=== PATIENT | female | born 1990 | race Caucasian/White ===

== ENCOUNTER 2018-01-14 14:23 | Emergency (ER) | payer SELFPAY ==
--- NOTE | 2018-01-14 16:53 | ER Document Report ---
ED Medical Screen (RME) - General Chief Complaint: Abdominal Pain Stated Complaint: ABDOMINAL PAIN Time Seen by Provider: 01/14/18 16:45 Notes: Patient presents with 4 days of constant sharp right lower quadrant pain that radiates to her back. She states she has been having more vaginal discharge she denies any fever nausea or vomiting. She states that the pain is sharp and continuous and has not gone away so she comes emergency department for evaluation. Her last menstrual period was approximately 3 weeks ago. I have greeted and performed a rapid initial assessment of this patient. A comprehensive ED assessment and evaluation of the patient, analysis of test results and completion of the medical decision making process will be conducted by additional ED providers. PHYSICAL EXAMINATION: GENERAL: Well-appearing, well-nourished and in no acute distress. HEAD: Atraumatic, normocephalic. EYES: Pupils equal round extraocular movements intact, conjunctiva are normal. ENT: Nares patent NECK: Normal range of motion LUNGS: No respiratory distress Musculoskeletal: Normal range of motion ABD: +BS, TTP RLQ BACK: No CVA TTP NEUROLOGICAL: Normal speech, normal gait. PSYCH: Normal mood, normal affect. SKIN: Warm, Dry, normal turgor, no rashes or lesions noted. TRAVEL OUTSIDE OF THE [place] IN LAST 30 DAYS: No - Related Data Allergies/Adverse Reactions: No Known Allergies Allergy (Verified 01/14/18 14:23) Past Medical History - Social History Chew tobacco use (# tins/day): No Frequency of alcohol use: Social Drug Abuse: None Renal/ Medical History: Denies: Hx Peritoneal Dialysis Past Surgical History: Reports: Hx Section, Hx Cholecystectomy, Hx Tubal Ligation Physical Exam - Vital signs Vitals: Temp Pulse Resp BP Pulse Ox 98.5 F 84 16 113/70 96 01/14/18 14:27 01/14/18 14:27 01/14/18 14:27 01/14/18 14:27 01/14/18 14:27 Course - Vital Signs Vital signs: Temp Pulse Resp BP Pulse Ox 98.5 F 84 16 113/70 96 01/14/18 14:27 01/14/18 14:27 01/14/18 14:27 01/14/18 14:27 01/14/18 14:27
[2018-01-14 17:27] LABS: ABSOLUTE EOSINOPHILS # (AUTO) 0.1 10^3/uL (0.0-0.6); ABSOLUTE LYMPHOCYTES (AUTO) 2.7 10^3/uL (0.5-4.7); ABSOLUTE MONOCYTES (AUTO) 0.5 10^3/uL (0.1-1.4); ABSOLUTE NEUT (AUTO) 5.6 10^3/uL (1.7-8.2); BASOPHILS % (AUTO) 0.5 % (0-2); EOSINOPHILS % (AUTO) 1.5 % (0-6); HEMATOCRIT 42.1 % (36.0-47.0); HEMOGLOBIN 14.2 g/dL (12.0-15.5); LYMPHOCYTES % (AUTO) 29.6 % (13-45); MEAN CORPUSCULAR HEMOGLOBIN 29.9 pg (27.0-33.4); MEAN CORPUSCULAR HGB CONC 33.7 g/dL (32.0-36.0); MEAN CORPUSCULAR VOLUME 89 fl (80-97); MONOCYTES % (AUTO) 5.8 % (3-13); PLATELET COUNT 334 10^3/uL (150-450); RED BLOOD COUNT 4.74 10^6/uL (3.72-5.28); RED CELL DISTRIBUTION WIDTH 13.2 % (11.5-14.0); SEGMENTED NEUTROPHILS % (AUTO) 62.6 % (42-78); TOTAL CELLS COUNTED % (AUTO) 100 %
[2018-01-14 17:42] LABS: ALANINE AMINOTRANSFERASE 25 U/L (9-52); ALBUMIN 4.2 g/dL (3.5-5.0); ALKALINE PHOSPHATASE 68 U/L (38-126); ANION GAP 9 (5-19); ASPARTATE AMINO TRANSFERASE 17 U/L (14-36); BILIRUBIN,DIRECT 0.2 mg/dL (0.0-0.4); BILIRUBIN,TOTAL 0.5 mg/dL (0.2-1.3); BLOOD UREA NITROGEN 5 mg/dL (7-20); CALCIUM 9.6 mg/dL (8.4-10.2); CARBON DIOXIDE 28 mmol/L (22-30); CHLORIDE 105 mmol/L (98-107); GLUCOSE 91 mg/dL (75-110); POTASSIUM 4.2 mmol/L (3.6-5.0); SODIUM 142.1 mmol/L (137-145)
[2018-01-14 17:56] LABS: APPEARANCE,URINE CLEAR; BILIRUBIN,URINE NEGATIVE (NEGATIVE); COLOR,URINE YELLOW; GLUCOSE, URINE NEGATIVE (NEGATIVE); KETONES,URINE NEGATIVE (NEGATIVE); LEUKOCYTE ESTERASE,URINE NEGATIVE (NEGATIVE); NITRITE,URINE NEGATIVE (NEGATIVE); PROTEIN,URINE NEGATIVE (NEGATIVE); URINE SPECIFIC GRAVITY 1.017; UROBILINOGEN,URINE NEGATIVE mg/dL (<2.0)
--- NOTE | 2018-01-14 19:33 | RADIOLOGY REPORT (SQ) ---
EXAM DESCRIPTION: U/S NON OB PEL TV W/DOPPLER COMPLETED DATE/TIME: 01/14/2018 7:24 pm REASON FOR STUDY: RLQ abd pain COMPARISON: None. TECHNIQUE: Dynamic and static grayscale images acquired of the pelvis via transvaginal approach and recorded on PACS. Additional selected color Doppler and spectral images recorded. LIMITATIONS: None. FINDINGS: UTERUS: Contour normal. No mass. ENDOMETRIAL STRIPE: No focal or generalized thickening. No masses. CERVIX: Small nabothian cysts. RIGHT OVARY AND DOPPLER: Normal size. No worrisome masses. Normal arterial vascular flow without evid ence for torsion. LEFT OVARY AND DOPPLER: Ovary not visualized. FREE FLUID: None noted. OTHER: No other significant finding. MEASUREMENTS: UTERUS: 5 x 10.1 cm. ENDOMETRIAL STRIPE: 6 mm. RIGHT OVARY: 3 x 3.1 x 4.1 cm. LEFT OVARY: Not visualized. IMPRESSION: LEFT OVARY NOT VISUALIZED. OTHERWISE UNREMARKABLE TRANSVAGINAL PELVIC ULTRASOUND. TECHNICAL DOCUMENTATION: JOB ID: [id number] [employer]- All Rights Reserved Rev Reading location - IP/workstation name: [email or web address]
[2018-01-14] MEDS ORDERED: IBUPROFEN 600 MG TABLET PO ONE (19:41)
[2018-01-14] MEDS ORDERED: ACETAMINOPHEN 325 MG TABLET PO ONE (19:41)
[2018-01-14 20:21] LABS: BACTERIA (WET MOUNT) 3+ BACTERIA SEEN; T.VAGINALIS (WET MOUNT) NO TRICHOMONAS SEEN; WBCS (WET MOUNT) 1+ WBCS SEEN; YEAST (WET MOUNT) YEAST SEEN
[2018-01-14] MEDS ORDERED: METRONIDAZOLE 500 MG TABLET PO ONE (21:10)
[2018-01-14] MEDS ORDERED: ONDANSETRON ODT 4 MG TAB (6 TAB/ER DISP) PO PRN (21:10)
--- NOTE | 2018-01-14 21:15 | ER Document Report ---
ED General - General Chief Complaint: Abdominal Pain Stated Complaint: ABDOMINAL PAIN Time Seen by Provider: 01/14/18 16:45 TRAVEL OUTSIDE OF THE [place] IN LAST 30 DAYS: No - HPI Patient complains to provider of: Right adnexal pain Notes: Patient coming in for evaluation of right adnexal pain. Patient states ongoing for the last few days. Patient also states vaginal discharge. Patient states she is in a monogamous relationship with a history of STDs in the past. Patient states that she has had 3 C-sections and last did have her fallopian tubes removed. Patient denies any fevers or chills night sweats denies any other abdominal surgery other than C-sections resting comfortably upon my evaluation - Related Data Allergies/Adverse Reactions: No Known Allergies Allergy (Verified 01/14/18 14:23) Past Medical History - Social History Smoking Status: Never Smoker Chew tobacco use (# tins/day): No Frequency of alcohol use: Social Drug Abuse: None Family History: None Patient has suicidal ideation: No Patient has homicidal ideation: No Renal/ Medical History: Denies: Hx Peritoneal Dialysis Past Surgical History: Reports: Hx Section, Hx Cholecystectomy, Hx Tubal Ligation Review of Systems - Review of Systems Constitutional: No symptoms reported EENT: No symptoms reported Cardiovascular: No symptoms reported Respiratory: No symptoms reported Gastrointestinal: Abdominal pain Genitourinary: Discharge Female Genitourinary: No symptoms reported Musculoskeletal: No symptoms reported Skin: No symptoms reported Hematologic/Lymphatic: No symptoms reported Neurological/Psychological: No symptoms reported -: Yes All other systems reviewed and negative Physical Exam - Vital signs Vitals: Temp Pulse Resp BP Pulse Ox 98.5 F 84 16 113/70 96 01/14/18 14:27 01/14/18 14:27 01/14/18 14:27 01/14/18 14:27 01/14/18 14:27 Interpretation: Normal - General General appearance: Appears well, Alert - HEENT Head: Normocephalic, Atraumatic Eyes: Normal Pupils: PERRL - Respiratory Respiratory status: No respiratory distress Chest status: Nontender Breath sounds: Normal Chest palpation: Normal - Cardiovascular Rhythm: Regular Heart sounds: Normal auscultation Murmur: No - Abdominal Inspection: Normal Distension: No distension Bowel sounds: Normal Tenderness: Nontender Organomegaly: No organomegaly - Genitourinary External exam: Normal Speculum exam: Cervix closed, Vaginal discharge - Scant white Bimanuel exam: Other - Slight adnexal tenderness in the right side - Back Back: Normal, Nontender - Extremities General upper extremity: Normal inspection, Nontender, Normal color, Normal ROM , Normal temperature General lower extremity: Normal inspection, Nontender, Normal color, Normal ROM , Normal temperature, Normal weight bearing. No: Marissa's sign - Neurological Neuro grossly intact: Yes Cognition: Normal Orientation: AAOx4 Monica Coma Scale Eye Opening: Spontaneous Monica Coma Scale Verbal: Oriented [place] Coma Scale Motor: Obeys Commands Monica Coma Scale Total: 15 Speech: Normal Motor strength normal: LUE, RUE, LLE, RLE Sensory: Normal - Psychological Associated symptoms: Normal affect, Normal mood - Skin Skin Temperature: Warm Skin Moisture: Dry Skin Color: Normal Course - Re-evaluation Re-evalutation: 01/14/18 23:13 Patient coming in for evaluation of right lower quadrant abdominal pain and adnexal pain with normal ultrasound scant white discharge on evaluation show signs of bacterial vaginosis and yeast infection. Patient was given a dose of Diflucan here in ER treatment options for the patient for bacterial vaginosis were given patient at this time does not have any insurance and therefore elected to be treated for bacterial vaginosis with 2 g of Flagyl. Patient was offered prophylactic treatment for gonorrhea chlamydia however states she is not worried at this time results upon discharge pending no treatment given 01/14/18 23:14 At this time I do not have an etiology for her pain although possibility still of STDs. Patient continues states she is in a monogamous relationship 01/14/18 23:53 Prescription and new discharge papers will be given tonight discharge however should follow-up in the morning to make sure that prescription renewed instructions were given to the patient - Vital Signs Vital signs: Temp Pulse Resp BP Pulse Ox 98.6 F 76 16 110/71 98 01/14/18 21:32 01/14/18 21:32 01/14/18 21:32 01/14/18 21:32 01/14/18 21:32 - Laboratory Result Diagrams: 01/14/18 17:00 01/14/18 17:00 Laboratory results interpreted by me: 01/14/18 01/14/18 17:00 19:50 BUN 5 L Chlamydia DNA (PCR) DETECTED H Discharge - Discharge Clinical Impression: Bacterial vaginosis, Vaginal yeast infection, Chlamydia Abdominal pain Qualifiers: Abdominal location: unspecified location Qualified Code(s): R10.9 - Unspecified abdominal pain Condition: Good Disposition: HOME, SELF-CARE Instructions: Abdominal Pain ([facility]), Chlamydia ([facility]), Metronidazole ([facility]), Ob- [employer], Oral Narcotic Medication ([facility]), Pelvic Inflammatory Disease ([facility]), Vaginal Yeast Infection ([facility]), Vaginosis, Bacterial ([facility]) Additional Instructions: Your ultrasound today does not show any significant pathology for your abdominal pain. Your laboratory studies also did not show any critical pathology for your abdominal pain. I do believe your surgical history that you may have developed scar tissue causing some of your pain. Your vaginal examination that does show signs of a yeast infection along with a bacterial overgrowth, bacterial vaginosis. We gave you 2 g of antibiotic called metronidazole. Please take all this medication at one time. Please be aware that this will make you slightly nauseous. Would recommend eating a bland diet before and after taking the pills. Please use the Zofran provided for any nausea. We gave you a dose of Diflucan here for your yeast if you are still having discharge in 2 weeks you may take another dose of Diflucan. Follow-up with [employer] or primary care physician. I would recommend taking 600 mg of Motrin thousand milligrams of Tylenol 3 times a day together for your pain control use Ultram for severe pain Your laboratory testing shows your positive for chlamydia the infection can explain some of the right lower quadrant abdominal pain that you are having. We will treat this with antibiotic called doxycycline. Please take this until completion. No sexual intercourse for 2 weeks please continue with the Flagyl and Diflucan. Please have your partner treated Prescriptions: Doxycycline Hyclate 100 mg PO BID #28 capsule Fluconazole [Diflucan] 100 mg PO ONCE PRN #1 tablet PRN Reason: Tramadol HCl [Ultram 50 mg Tablet] 50 mg PO ASDIR PRN #20 tablet PRN Reason:
[2018-01-14 21:33] VITALS: BP 110/71
[2018-01-14 21:48] LABS: CHLAM PCR DETECTED (NOT DETECT); GON PCR NOT DETECTED (NOT DETECT)
== END 2018-01-14 21:33 | disposition home or self-care (01) ==
LOC: ER 14:23
DX: N76.0 Acute vaginitis (principal); B96.89 Other specified bacterial agents as the cause of diseases classified elsewhere; A56.8 Sexually transmitted chlamydial infection of other sites; R10.9 Unspecified abdominal pain; Z90.49 Acquired absence of other specified parts of digestive tract; Z98.51 Tubal ligation status
CPT/HCPCS: 36415; 76830; 80053; 81001; 84703; 85025; 87210; 87491; 87591; 93976; 99284